=== PATIENT | female | born 1955 | race Hispanic/Latino ===

== ENCOUNTER 2022-03-10 10:02 | Emergency (ER) | payer MEDICARE | END 2022-03-10 14:40 | disposition home or self-care (01) | LOC: ERS 10:02 | DX: I10 Essential (primary) hypertension (principal); Z79.84 Long term (current) use of oral hypoglycemic drugs; Z79.4 Long term (current) use of insulin; E11.9 Type 2 diabetes mellitus without complications | CPT/HCPCS: 36416; 93005 ==